=== PATIENT | male | born 1985 | race Caucasian/White ===

== ENCOUNTER 2017-01-06 06:21 | Emergency (ER) | payer OTHER ==
[2017-01-06 06:35] VITALS: BMI 25.3
--- NOTE | 2017-01-06 07:33 | PDOC ---
History of Present Illness - General Chief Complaint: Pain, Acute Stated Complaint: LEG PAIN Time Seen by Provider: 01/06/17 06:59 History Source: Patient Exam Limitations: No Limitations - History of Present Illness Initial Comments: 01/06/17 07:35 Patient is a 31M with a PMH significant for alcoholism (drinks 6-7 beers per night) here today complaining of left knee pain. He states that the pain has been going on for 6 months, but has gotten worse in the past week. He reports being able to walk but it is very painful. The pain is located on the medial and lateral aspect of the knee. It gets worse with use and better with rest. He denies fevers, chills, nausea, vomiting, shortness of breath, chest pain, and dysuria. Past History - Past Medical History Allergies/Adverse Reactions: Allergies Allergy/AdvReac Type Severity Reaction Status Date / Time No Known Allergies Allergy Verified 01/06/17 06:33 Home Medications: Ambulatory Orders NK [No Known Home Medication] 01/06/17 Other medical history: daily use 0f alcohol - Immunization History Immunization Up to Date: Yes - Psycho/Social/Smoking Cessation Hx Anxiety: No Suicidal Ideation: No Smoking History: Never smoked Hx Alcohol Use: Yes Drug/Substance Use Hx: No Substance Use Type: Alcohol Review of Systems - Review of Systems Constitutional: No: Chills, Diaphoresis, Fever Respiratory: No: Cough, Shortness of Breath Cardiac (ROS): No: Chest Pain, Edema ABD/GI: No: Nausea, Vomiting : No: Burning, Dysuria Musculoskeletal: Yes: Joint Pain (left knee pain) Neurological: No: Headache, Weakness *Physical Exam - Vital Signs Last Vital Signs Temp Pulse Resp BP Pulse Ox 101.9 F H 78 144/99 100 01/06/17 06:21 01/06/17 06:21 01/06/17 06:21 01/06/17 06:21 - Physical Exam Comments: 01/06/17 08:01 Gen: Disheveled but well nourished, no acute distress, resting comfortably, smells of alcohol HEENT: atraumatic normocephalic CV: RRR, no murmurs rubs or gallops Lungs: Normal work of breathing, clear to auscultation bilaterally Abd: Soft nontender, normal bowel sounds Knee: Tender along medial and lateral aspects of L knee, able to range appropriately, drawer test negative Neuro: alert, oriented, no focal neuro deficits, CN2-12 intact Medical Decision Making - Medical Decision Making 01/06/17 08:20 Patient is a 31M alcoholic with left knee pain. First reported temperature is likely in error, repeat temp 98. Vital signs normal and stable. Differential diagnosis includes: meniscal tear, knee arthritis, ligament injury and others. Will do x-ray to evaluate for bony trauma. 01/06/17 09:22 X-ray of knee normal. Will hold until patient is clinically sober. 01/06/17 11:44 Patient now clinically sober. Diagnosis and treatment plan explained. Told to follow up with [facility]. *DC/Admit/Observation/Transfer Diagnosis at time of Disposition: Knee pain Qualifiers: Chronicity: acute Laterality: left Qualified Code(s): M25.562 - Pain in left knee - Discharge Dispostion Disposition: HOME Condition at time of disposition: Improved - Patient Instructions Printed Discharge Instructions: DI for Knee Pain Additional Instructions: Please [facility] at [phone] to follow up for knee pain - Attestations Physician Attestion: 01/06/17 11:44 I, Dr. Umer Robin, attest that this document has been prepared under my direction and personally reviewed by me in its entirety. I further attest, that it accurately reflects all work, treatment, procedures and medical decision -making performed by me.
[2017-01-06 08:08] VITALS: TEMP 98
--- NOTE | 2017-01-06 08:16 | PDOC ---
Attending Attestation - Resident Resident Name: StantonUmer lopez - ED Attending Attestation I have performed the following: I have examined & evaluated the patient, The case was reviewed & discussed with the resident, I agree w/resident's findings & plan, Exceptions are as noted - HPI HPI: 31 yo M history EtOH use presents with L pain for past few weeks. 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 Denies any falls. No numbness or weakness. No fever, chills, recent illness. He was drinking alcohol this morning prior to arrival. Knee pain is moderate, worse with movement and walking. It localizes to medial and lateral knee, nonradiating. No redness, no swelling. - Physicial Exam PE: GENERAL: Awake, alert, and fully oriented. +AOB. HEAD: No signs of trauma EYES: PERRLA, EOMI, sclera anicteric, conjunctiva clear ENT: Auricles normal inspection, hearing grossly normal, nares patent, oropharynx clear without exudates. Moist mucosa NECK: Normal ROM, supple, no lymphadenopathy, JVD, or masses LUNGS: Breath sounds equal, clear to auscultation bilaterally. No wheezes, and no crackles HEART: Regular rate and rhythm, normal S1 and S2, no murmurs, rubs or gallops ABDOMEN: Soft, nontender, normoactive bowel sounds. No guarding, no rebound. No masses EXTREMITIES: Normal range of motion, no edema. No clubbing or cyanosis. No cords, erythema, or tenderness. L knee pain elicited on ROM. No effusion, no erythema, no ligamentous instability. NEUROLOGICAL: Cranial nerves II through XII grossly intact. Normal speech. Unstable gait. SKIN: Warm, Dry, normal turgor, no rashes or lesions noted. - Medical Decision Making Patient with left knee pain. Initial triage vitals stated there was fever, but on repeat vitals there was no fever. ?Incorrect value? No signs of fever on exam , no source noted. L knee is painful on ROM, but no signs of septic joint. Will obtain XR, but patient will need outpatient f/u, as he likely needs MRI if pain continues. Will DC home when he is clinically sober.
[2017-01-06 12:09] VITALS: BP 123/75; PULSE 95
== END 2017-01-06 12:08 | disposition home or self-care (01) ==
LOC: JER 06:21
DX: M25.562 Pain in left knee (principal); F10.20 Alcohol dependence, uncomplicated
CPT/HCPCS: 73562-TC-LT; 99282-25

== ENCOUNTER 2017-10-27 09:36 | Emergency (ER) | payer OTHER | END 2017-10-27 11:31 | disposition home or self-care (01) | LOC: JERFT 09:36 | PROC: 2W3QX1Z Immobilization of Right Lower Leg using Splint (ICD-10-PCS; principal; 2017-10-27) | CPT/HCPCS: 29515; 73610-TC-RT-FY; 73630-TC-RT-FY; 99281-25 ==

== ENCOUNTER 2022-12-21 03:58 | Emergency (ER) | payer OTHER ==
[2022-12-21 04:13] VITALS: BP 150/86; PULSE 106; RESP 18; BMI 26.1
[2022-12-21] MEDS ORDERED: DIPHTH,PERTUSS(ACELL),TET 0.5 ML DISP.SYRIN IM ONE ×2 (04:27→04:51)
[2022-12-21] MEDS ORDERED: CEPHALEXIN MONOHYDRATE 500 MG CAPSULE (UD) PO ONE (05:07)
[2022-12-21] MEDS ORDERED: CEPHALEXIN MONOHYDRATE 500 MG CAPSULE (UD) ONE (05:10)
[2022-12-21 05:30] VITALS: TEMP 98
== END 2022-12-21 05:42 | disposition home or self-care (01) ==
LOC: JER 03:58
PROC: 0HQGXZZ Repair Left Hand Skin, External Approach (ICD-10-PCS; principal; 2022-12-21)
PROC: 3E0234Z Introduction of Serum, Toxoid and Vaccine into Muscle, Percutaneous Approach (ICD-10-PCS; 2022-12-21)
DX: S61.412A Laceration without foreign body of left hand, initial encounter (principal); W25.XXXA Contact with sharp glass, initial encounter; Y28.0XXA Contact with sharp glass, undetermined intent, initial encounter; Y93.39 Activity, other involving climbing, rappelling and jumping off; Y92.009 Unspecified place in unspecified non-institutional (private) residence as the place of occurrence of the external cause
CPT/HCPCS: 12001-25; 73130-TC-LT-FY; 90471; 90715; 99283-25